=== PATIENT | female | born 1985 | race Two or more races ===

== ENCOUNTER 2017-03-05 23:07 | Emergency (ER) | payer MEDICAID ==
[~2017-03-05] VITALS: Ht 154.9 cm; Wt 68.0 kg
[2017-03-05 23:20] VITALS: BP 116/71
[2017-03-06] MEDS ORDERED: Oxycodone/Acetaminophen 5-325 ORAL ONE (00:15)
[2017-03-06 00:38] VITALS: BP 118/75
[2017-03-06] MEDS ORDERED: ACETAMINOPHEN-1 EAC1 ORAL (01:20)
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
== END 2017-03-06 01:30 | disposition home or self-care (01) ==
LOC: EDBD 23:07 → EMR 03-06 01:09
DX: S00.12XA Contusion of left eyelid and periocular area, initial encounter (principal); Y04.2XXA Assault by strike against or bumped into by another person, initial encounter; Y92.009 Unspecified place in unspecified non-institutional (private) residence as the place of occurrence of the external cause; R51 Headache; J32.9 Chronic sinusitis, unspecified
CPT/HCPCS: 70486; 99283